=== PATIENT | male | born 1990 | race Caucasian/White ===

== ENCOUNTER 2018-09-04 13:10 | Emergency (ER) | payer OTHER ==
[2018-09-04] MEDS: IBUPROFEN 600 MG TAB PO (14:09)
[2018-09-04] MEDS: ACETAMINOPHEN 500 MG TAB PO (14:09)
[2018-09-04 14:30] LABS: URINE BLOOD (Dip) POC 2+ (NEGATIVE); URINE GLUCOSE (Dip) POC Negative (NEGATIVE); URINE KETONES (Dip) POC Negative (NEGATIVE); URINE LEUKOCYTE EST (Dip) POC Negative (NEGATIVE); URINE NITRITE (Dip) POC Negative (NEGATIVE); URINE TOTAL PROTEIN POC 1+ (NEGATIVE)
== END 2018-09-04 15:08 | disposition home or self-care (01) ==
LOC: FTE 13:10
DX: R30.0 Dysuria (principal)
CPT/HCPCS: 81003; 87086; 87400; 87591; 99283